=== PATIENT | male | born 1930 | race Caucasian/White ===

== ENCOUNTER 2016-07-07 11:47 | Day surgery (SDCO) | payer MEDICARE, OTHER ==
[2016-07-07 12:58] LABS: BASOPHIL 0.4 % (0-2); EOSINOPHIL 1.4 % (0-7); HCT 33.7 % (42.0-52.0); HGB 10.5 g/dl (13.2-18.0); LYMPHOCYTE 14.3 % (15-48); MCH 31.9 pg (25.0-31.0); MCHC 31.2 g/dL (32.0-36.0); MCV 102.4 fL (78.0-100.0); MONOCYTE 10.5 % (0-12); MPV 11.8 fL (6.0-9.5); NEUTROPHIL 73.4 % (41-80); RBC 3.29 M/uL (4.70-6.00); RDW 22.9 % (11.5-14.0)
[2016-07-07 13:01] LABS: PLT 74 K/uL (150-400)
[2016-07-07 13:18] LABS: ALBUMIN 2.7 g/dL (3.4-4.8); BILIRUBIN - TOTAL 0.7 mg/dL (0.1-1.0); CREATININE 3.6 mg/dL (0.7-1.2); GLOBULIN (CALCULATION) 4.5 g/dL (2.2-4.2); TOTAL PROTEIN 7.2 g/dL (6.4-8.3)
[2016-07-07 13:19] LABS: PRO-BNP > 35000 pg/mL (0-450); TROPONIN T 0.242 ng/mL
[2016-07-07 13:22] LABS: POTASSIUM 6.6 mmol/L (3.5-5.1)
--- NOTE | 2016-07-08 00:38 | NUR ---
PT WAS CONFIRMED AT 2245, VERIFIED BY 2 RNS (SWAPNIL CHILDRESS AND MADELYN PABLO). JOHNNY LOPEZ NP, TO BEDSIDE TO CONFIRM. DAUGHTER AT BEDSIDE. FAMILY NOTIFIED. POLICY AND PROCEDURE FOLLOWED AND JUAN CONTACTED, CHAPLAIN MARIEE CALLED, PT CLEANED/BATHED PER PROTOCOL. NO AUTOPSY AND NO CRIMINALIST. PT TIME OF AT 2245 (07/07/16). FAMILY ARRIVED AND TOOK PT BELONGINGS HOME, INCLUDING A GOLD-COLORED W[place]DING BAND AND SILVER COLORED WATCH. [facility] ARRIVED AT 0030 AND PT TRANSPORTED FROM BUILDING AT 0041.
== END 2016-07-07 22:45 | disposition expired ==
LOC: FER 11:47 → FMS 14:51
PROVIDERS: Internal Medicine; ADMIT Internal Medicine
DX: J96.20 Acute and chronic respiratory failure, unspecified whether with hypoxia or hypercapnia (principal); J18.9 Pneumonia, unspecified organism; J90 Pleural effusion, not elsewhere classified; J44.9 Chronic obstructive pulmonary disease, unspecified; I48.2 Chronic atrial fibrillation; D64.9 Anemia, unspecified; G47.30 Sleep apnea, unspecified; N18.4 Chronic kidney disease, stage 4 (severe); Z98.41 Cataract extraction status, right eye; Z98.42 Cataract extraction status, left eye; Z95.0 Presence of cardiac pacemaker; Z79.899 Other long term (current) drug therapy; Z79.01 Long term (current) use of anticoagulants; Z83.6 Family history of other diseases of the respiratory system; Z82.49 Family history of ischemic heart disease and other diseases of the circulatory system
CPT/HCPCS: 36415; 36600; 71010; 80053; 82803; 83880; 84484; 85025; 93005; 94660; G0378; J1940; J2270; J2543; J2930